=== PATIENT | male | born 1990 | race Caucasian/White ===

== ENCOUNTER 2018-04-15 16:24 | Emergency (ER) | payer SELFPAY ==
--- NOTE | 2018-04-15 17:00 | ED Physician Chart ---
ED Chief Complaint/HPI - Patient Information Date Seen:: 04/15/18 Time Seen:: 16:25 Chief Complaint:: AMS History of Present Illness:: onset x 3 hours of AMS and ALOC; no report of trauma, H/As, S/T, neck pain, weakness, dizziness, paresthesias, vertigo, C/P, SOB, Abd. Pain, A/N/V/D/C, fever, chills, or urinary s/s Allergies:: Allergies Allergy/AdvReac Type Severity Reaction Status Date / Time No Known Allergies Allergy Verified 04/15/18 16:55 Historian:: Patient Review:: Nurse's Note Reviewed, Old Chart Reviewed, EMS run form Reviewed <Joseph Rosenthal - Last Filed: 04/15/18 18:44> - Patient Information Allergies:: Allergies Allergy/AdvReac Type Severity Reaction Status Date / Time No Known Allergies Allergy Verified 04/15/18 16:55 Vitals:: Vital Signs - 8 hr 04/15/18 04/15/18 04/15/18 16:50 16:55 17:33 Temp 98.4 F HR 86 95 83 RR 14 17 15 BP 125/80 128/86 129/77 O2 Sat % 96 95 97 04/15/18 04/15/18 18:00 19:00 Temp 98.4 F HR 84 84 RR 14 14 BP 117/79 122/80 O2 Sat % 97 97 <Anita Berger - Last Filed: 04/15/18 20:37> ED Review of Systems - Review of Systems General/Constitutional: No fever, No chills, No weight loss, No weakness, No diaphoresis, No edema, No loss of appetite Skin: No skin lesions, No rash, No bruising Head: No headache, No light-headedness Eyes: No loss of vision, No pain, No diplopia ENT: No earache, No nasal drainage, No sore throat, No tinnitus Neck: No neck pain, No swelling, No thyromegaly, No stiffness, No mass noted Cardio Vascular: No chest pain, No palpitations, No PND, No orthopnea, No edema Pulmonary: No SOB, No cough, No sputum, No wheezing GI: No nausea, No vomiting, No diarrhea, No pain, No melena, No hematochezia, No constipation, No hematemesis G/U: No dysuria, No frequency, No hematuria, No nacturia Musculoskeletal: No bone or joint pain, No back pain, No muscle pain Endocrine: No polyuria, No polydipsia Psychiatric: No prior psych history, No depression, No anxiety, No suicidal ideation, No homicidal ideation, No auditory hallucination, No visual hallucination Hematopoietic: No bruising, No lymphadenopathy Allergic/Immuno: No urticaria, No angioedema Neurological: No syncope, No focal symptoms, No weakness, No paresthesia, No headache, No seizure, No dizziness, Confusion, No vertigo <GaloJoseph - Last Filed: 04/15/18 18:44> ED Past Medical History - Past Medical History Obtainable: Yes Past Medical History: No significant medical hx Family History: None Social History: Smoker, Alcohol, Illicit Drug Use, Single Surgical History: None Psychiatricy History: None Medication: Reviewed <Joseph Rosenthal - Last Filed: 04/15/18 18:44> ED Physical Exam - Physical Examination General/Constitutional: Awake, Well-developed, well-nourished, Alert, No distress, GCS 15, Non-toxic appearing, Ambulatory Head: Atraumatic Eyes: Lids, conjuctiva normal, PERRL, EOMI Skin: Nl inspection, No rash, No skin lesions, No ecchymosis, Well hydrated, No lymphadenopathy ENMT: External ears, nose nl, TM canals nl, Nasal exam nl, Lips, teeth, gums nl , Oropharynx nl, Tonsils nl Neck: Nontender, Full ROM w/o pain, No JVD, No nuchal rigidity, No bruit, No mass, No stridor Respiratory: Nl effort/Exclusion, Clear to Auscultation, No Wheeze/Rhonchi/Rales Cardio Vascular: RRR, No murmur, gallop, rubs, NL S1 S2, Carotid/Femoral/Distal pulses equal bilaterally GI: No tenderness/rebounding/guarding, No organomegaly, No hernia, Normal BS's, Nondistended, No mass/bruits, No McBurney tenderness : No CVA tenderness Extremities: No tenderness or effusion, Full ROM, normal strength in all extremities, No edema, Normal digits & nails Neuro/Psych: Alert/oriented, DTR's symmetric, Normal sensory exam, Normal motor strength, Judgement/insight normal, Mood normal, Normal gait, No focal deficits Misc: Normal back, No paraspinal tenderness <GaloJoseph - Last Filed: 04/15/18 18:44> ED Labs/Radiology/EKG Results - Lab Results Comments:: UDS: + Cannabinnoids; + Amphetamines - EKG Interpretations EKG Time:: 16:47 Rate & Rhythm: 87; NSR Comments:: non-specific st-t changes <ClaribelrhiannonmildredJoseph - Last Filed: 04/15/18 18:44> - Lab Results Results: Laboratory Tests 04/15/18 04/15/18 04/15/18 16:40 16:40 16:40 WBC 11.6 H RBC 4.73 Hgb 15.0 Hct 43.5 MCV 92.0 MCH 31.6 H MCHC Differential 34.4 RDW 11.7 Plt Count 238 MPV 9.0 Neutrophils % 77.4 Lymphocytes % 13.5 L Monocytes % 8.7 Eosinophils % 0.4 Basophils % 0.0 PT 9.9 INR 0.95 Sodium 136 Potassium 3.6 Chloride 102 Carbon Dioxide 24.8 Anion Gap 12.8 BUN 11 Creatinine 0.7 Est GFR ( Amer) > 60.0 Est GFR (Non-Af Amer) > 60.0 BUN/Creatinine Ratio 15.7 Glucose 93 Calcium 8.9 Creatine Kinase 428 H CK-MB (CK-2) 3.6 Troponin I B-Natriuretic Peptide Salicylates Urine Opiates Screen Urine Methadone Screen Acetaminophen Ur Barbiturates Screen Ur Tricyclics Screen Ur Phencyclidine Scrn Amphetamines Screen U Methamphetamines Scrn U Benzodiazepines Scrn U Cocaine Metab Screen U Cannabinoids Screen Ethyl Alcohol < 10 04/15/18 04/15/18 04/15/18 16:40 16:40 16:40 WBC RBC Hgb Hct MCV MCH MCHC Differential RDW Plt Count MPV Neutrophils % Lymphocytes % Monocytes % Eosinophils % Basophils % PT INR Sodium Potassium Chloride Carbon Dioxide Anion Gap BUN Creatinine Est GFR ( Amer) Est GFR (Non-Af Amer) BUN/Creatinine Ratio Glucose Calcium Creatine Kinase CK-MB (CK-2) Troponin I < 0.01 L B-Natriuretic Peptide < 5.0 L Salicylates < 25.0 L Urine Opiates Screen Urine Methadone Screen Acetaminophen < 10.0 L Ur Barbiturates Screen Ur Tricyclics Screen Ur Phencyclidine Scrn Amphetamines Screen U Methamphetamines Scrn U Benzodiazepines Scrn U Cocaine Metab Screen U Cannabinoids Screen Ethyl Alcohol 04/15/18 16:45 WBC RBC Hgb Hct MCV MCH MCHC Differential RDW Plt Count MPV Neutrophils % Lymphocytes % Monocytes % Eosinophils % Basophils % PT INR Sodium Potassium Chloride Carbon Dioxide Anion Gap BUN Creatinine Est GFR ( Amer) Est GFR (Non-Af Amer) BUN/Creatinine Ratio Glucose Calcium Creatine Kinase CK-MB (CK-2) Troponin I B-Natriuretic Peptide Salicylates Urine Opiates Screen NEGATIVE Urine Methadone Screen NEGATIVE Acetaminophen Ur Barbiturates Screen NEGATIVE Ur Tricyclics Screen NEGATIVE Ur Phencyclidine Scrn NEGATIVE Amphetamines Screen POSITIVE H U Methamphetamines Scrn NEGATIVE U Benzodiazepines Scrn NEGATIVE U Cocaine Metab Screen NEGATIVE U Cannabinoids Screen POSITIVE H Ethyl Alcohol - Radiology Results Results: ct head negative NAD CT ABD nad ct cervical negative wbc 11 tox pos for meth thc <Anita Berger - Last Filed: 04/15/18 20:37> ED Assessment - Assessment General Assessment: ams dug abuse <Anita Berger - Last Filed: 04/15/18 20:37> ED Septic Shock - . Is Septic Shock (SBP<90, OR Lactate>4 mmol\L) present?: No <Joseph Rosenthal - Last Filed: 04/15/18 18:44> - . Is Septic Shock (SBP<90, OR Lactate>4 mmol\L) present?: No - <6hrs of presentation: Vital Signs: Vital Signs - 8 hr 04/15/18 04/15/18 04/15/18 16:50 16:55 17:33 Temp 98.4 F HR 86 95 83 RR 14 17 15 BP 125/80 128/86 129/77 O2 Sat % 96 95 97 04/15/18 04/15/18 18:00 19:00 Temp 98.4 F HR 84 84 RR 14 14 BP 117/79 122/80 O2 Sat % 97 97 <Anita Berger - Last Filed: 04/15/18 20:37> ED Reassessment (Disposition) - Reassessment Reassessment Condition:: Improved - Diagnosis Diagnosis:: Dx: Substance Abuse; ALOC; AMS <Joseph Rosenthal - Last Filed: 04/15/18 18:44> - Patient Disposition Discharge/Transfer:: Skilled Nursing/Longterm <Anita Berger - Last Filed: 04/15/18 20:37>
[2018-04-15 17:01] LABS: % EOSINOPHILS 0.4 % (0.0-5.0); % LYMPHOCYTES 13.5 % (20.0-50.0); % MONOCYTES 8.7 % (2.0-10.0); % NEUTROPHILS 77.4 % (40.0-80.0); HEMATOCRIT 43.5 % (41.0-60); LYMPHOCYTE ABSOLUTE 1.6 Th/cmm (1.5-3.0); MEAN CORPUSCULAR HEMOGLOBIN 31.6 pg (26.0-30.0); MEAN CORPUSCULAR HGB CONC 34.4 pg (28.0-36.0); PLATELET COUNT 238 Th/cmm (150-400); RED BLOOD COUNT 4.73 Mil/cmm (4.30-5.70); RED CELL DISTRIBUTION WIDTH 11.7 % (11.5-20.0); WHITE BLOOD COUNT 11.6 Th/cmm (4.8-10.8)
[2018-04-15 17:12] LABS: INR 0.95 (0.5-1.4); PROTHROMBIN TIME (TEST) 9.9 SECONDS (9.5-11.5)
[2018-04-15 17:31] LABS: AMPHETAMINE URINE POSITIVE (NEGATIVE); BARBITURATES URINE NEGATIVE (NEGATIVE); BENZODIAZEPINES QUAL URINE NEGATIVE (NEGATIVE); CANNABINOID THC POSITIVE (NEGATIVE); COCAINE METABOLITE QUAL URINE NEGATIVE (NEGATIVE); METHADONE URINE NEGATIVE (NEGATIVE); METHAMPHETAMINES QUAL URINE NEGATIVE (NEGATIVE); OPIATES (MORPHINE) QUAL. URINE NEGATIVE (NEGATIVE); PHENCYCLIDINE (PCP) URINE NEGATIVE (NEGATIVE); TRICYCLICS (TCA) QUAL. URINE NEGATIVE (NEGATIVE)
[2018-04-15 17:54] LABS: ANION GAP 12.8 (7.0-16.0); BUN - UREA NITROGEN 11 mg/dL (7-25); CALCIUM SERUM 8.9 mg/dL (8.6-10.3); CARBON DIOXIDE 24.8 mEq/L (21.0-31.0); CHLORIDE 102 mEq/L (98-107); CREATININE - SERUM 0.7 mg/dL (0.7-1.3); CREATININE KINASE 428 U/L (30-223); GFR AFRICAN-AMERICAN > 60.0 ml/min (>90); GFR NON AFRICAN-AMERICAN > 60.0 ml/min; GLUCOSE 93 mg/dL (70-105); POTASSIUM SERUM 3.6 mEq/L (3.5-5.1); SODIUM SERUM 136 mEq/L (136-145)
[2018-04-15 18:28] LABS: ACETAMINOPHEN < 10.0 ug/mL (10.0-30.0)
[2018-04-15 18:54] LABS: SALICYLATES (ASPIRIN) < 25.0 mg/L (30.0-100.0)
--- NOTE | 2018-04-16 09:11 | Diagnostic Imaging Report ---
CT scan of the brain without contrast History: Trauma Total DLP equals 585 CTDI equals 85.4 Axial sections were obtained from the base of the skull to the vertex. There is a normal ventricular system size. No focal parenchymal lesions are seen. No evidence of any mass effect or shift of midline structures. No extra-axial masses or abnormal fluid collections. Impression: Negative examination
--- NOTE | 2018-04-16 09:17 | Diagnostic Imaging Report ---
CT scan of the abdomen and pelvis without intravenous contrast History: Overdose Total DLP equals 626 CTDI equals 11.4 Axial sections were obtained from the xiphoid process down to the pubic symphysis. The liver demonstrates a normal size and contour. No focal lesions are seen. The spleen appears normal. No abnormalities are seen in the region of the pancreas. The kidneys appear normal bilaterally. The exam of the pelvis demonstrates preservation of normal fat planes. No abnormal soft tissue masses. No abnormal fluid collections. Impression: Negative examination.
== END 2018-04-15 20:40 | disposition still patient (30) ==
LOC: ER 16:24
DX: F12.10 Cannabis abuse, uncomplicated (principal); R41.82 Altered mental status, unspecified; F10.20 Alcohol dependence, uncomplicated; F17.200 Nicotine dependence, unspecified, uncomplicated
CPT/HCPCS: 36415-UA; 70450-TC; 72125-TC; 80048-TC; 80307; 80320-TC; 80329-TC; 82550-TC; 82553; 83880-TC; 84484-TC; 85025-TC; 85610-TC; 93005; 94760